=== PATIENT | female | born 1965 | race Caucasian/White ===

== ENCOUNTER 2023-02-10 19:04 | Emergency (ER) | payer OTHER ==
[2023-02-10 19:29] VITALS: RESP 18; BMI 25.2
[2023-02-10] MEDS ORDERED: morphine CARPU-JECT 4 MG/1 ML DISP.SYRIN IVPUSH ONE (20:45)
[2023-02-10] MEDS ORDERED: morphine SULFATE 4 MG/ML VIAL ONE (21:01)
[2023-02-10 21:13] LABS: BASO % 0.9 % (0-2.0); EOS % 1.3 % (0-4.5); HEMATOCRIT 38.1 % (32.4-45.2); HEMOGLOBIN 12.6 GM/dL (10.7-15.3); LYMPH % 35.9 % (8-40); MCH 27.3 pg (25.7-33.7); MCHC 32.9 g/dl (32.0-36.0); MEAN CELL VOLUME 82.8 fl (80-96); MEAN PLT VOLUME 10.5 fl (7.5-11.1); NEUT % 49.9 % (42.8-82.8); PLATELET COUNT 170 10^3/uL (134-434); RDW 14.3 % (11.6-15.6); WHITE BLOOD COUNT 5.1 K/mm3 (4.0-10.0)
[2023-02-10 21:19] LABS: INR 1.06 (0.83-1.09); PROTHROMBIN TIME (PATIENT) 12.3 SEC (9.7-13.0)
[2023-02-10 21:22] LABS: ACTIVATED PTT 33.3 SECONDS (25.2-36.5)
[2023-02-10 21:33] LABS: POTASSIUM 4.4 mmol/L (3.5-5.1)
[2023-02-10 21:35] LABS: CALCIUM 8.7 mg/dL (8.5-10.1)
[2023-02-10 21:36] LABS: ALBUMIN 3.7 g/dl (3.4-5.0)
[2023-02-10 21:39] LABS: CREATININE 1.1 mg/dL (0.55-1.3)
[2023-02-10 21:40] LABS: BILIRUBIN,TOTAL 0.3 mg/dL (0.2-1)
[2023-02-10 23:02] VITALS: BP 140/67; PULSE 72; TEMP 98
== END 2023-02-11 00:23 | disposition home or self-care (01) ==
LOC: JER 19:04
PROC: 3E033GC Introduction of Other Therapeutic Substance into Peripheral Vein, Percutaneous Approach (ICD-10-PCS; principal; 2023-02-10)
PROC: 2W3QX1Z Immobilization of Right Lower Leg using Splint (ICD-10-PCS; 2023-02-10)
DX: S92.001A Unspecified fracture of right calcaneus, initial encounter for closed fracture (principal); S86.001A Unspecified injury of right Achilles tendon, initial encounter; M79.604 Pain in right leg; M79.89 Other specified soft tissue disorders; W07.XXXA Fall from chair, initial encounter; Y93.89 Activity, other specified; Y92.019 Unspecified place in single-family (private) house as the place of occurrence of the external cause
CPT/HCPCS: 36415; 73610-TC-RT-FY; 73630-TC-RT-FY; 73700-TC-RT; 80053; 85025; 85610; 85730; 86850; 86900; 86901; 99285-25